=== PATIENT | male | born 1990 | race Caucasian/White ===

== ENCOUNTER 2021-11-09 21:32 | Emergency (ER) | payer OTHER ==
[~2021-11-09] VITALS: Ht 170.2 cm; Wt 65.8 kg
[2021-11-09 21:50] VITALS: BP_SYST 122
[2021-11-10] MEDS ORDERED: BACITRACIN 1 GM OINT TP ONE (00:22)
[2021-11-10 01:12] VITALS: BP_SYST 139
== END 2021-11-10 01:12 | disposition home or self-care (01) ==
LOC: SED 21:32
DX: S61.205A Unspecified open wound of left ring finger without damage to nail, initial encounter (principal); W31.1XXA Contact with metalworking machines, initial encounter; Y93.89 Activity, other specified; Y92.89 Other specified places as the place of occurrence of the external cause; Y99.8 Other external cause status
CPT/HCPCS: 99282